=== PATIENT | male | born 1990 | race Caucasian/White ===

== ENCOUNTER 2019-05-24 23:59 | Emergency (ER) | payer SELFPAY ==
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
== END 2019-05-25 00:13 | disposition home or self-care (01) ==
LOC: ER 23:59
DX: G89.29 Other chronic pain (principal); M79.642 Pain in left hand
CPT/HCPCS: 99281-25